=== PATIENT | female | born 1995 | race Caucasian/White ===

== ENCOUNTER → 2023-10-21 06:58 | Outpatient (REF) | payer BC, SELFPAY | LOC: PNTC 06:58 | PROVIDERS: ATTENDING PHYSICIAN Obstetrics & Gynecology | DX: O99.210 Obesity complicating pregnancy, unspecified trimester (principal); O34.219 Maternal care for unspecified type scar from previous cesarean delivery; O09.899 Supervision of other high risk pregnancies, unspecified trimester; O13.9 Gestational [pregnancy-induced] hypertension without significant proteinuria, unspecified trimester | CPT/HCPCS: 76811; 93976 ==

== ENCOUNTER → 2023-11-22 15:02 | Outpatient (REF) | payer BC, SELFPAY | LOC: PNTC 15:02 | PROVIDERS: ATTENDING PHYSICIAN Obstetrics & Gynecology | DX: O99.210 Obesity complicating pregnancy, unspecified trimester (principal); O34.219 Maternal care for unspecified type scar from previous cesarean delivery; O43.219 Placenta accreta, unspecified trimester | CPT/HCPCS: 76816; 93976 ==

== ENCOUNTER 2023-12-11 17:52 | Observation (INO) | payer BC, SELFPAY ==
[2023-12-11 18:06] VITALS: BP 131/67; BMI 45.8
== END 2023-12-11 18:00 | disposition home or self-care (01) ==
LOC: LDRP 17:52
PROVIDERS: ADMITTING PHYSICIAN Obstetrics & Gynecology
DX: T75.4XXA Electrocution, initial encounter (principal); W86.1XXA Exposure to industrial wiring, appliances and electrical machinery, initial encounter; Y93.H3 Activity, building and construction; Y92.009 Unspecified place in unspecified non-institutional (private) residence as the place of occurrence of the external cause; O99.283 Endocrine, nutritional and metabolic diseases complicating pregnancy, third trimester; E28.2 Polycystic ovarian syndrome; Z3A.28 28 weeks gestation of pregnancy; O99.343 Other mental disorders complicating pregnancy, third trimester; F41.9 Anxiety disorder, unspecified
CPT/HCPCS: 59025; G0378

== ENCOUNTER → 2023-12-20 07:00 | Outpatient (REF) | payer BC, SELFPAY | LOC: PNTC 07:00 | PROVIDERS: ATTENDING PHYSICIAN Obstetrics & Gynecology | DX: O99.210 Obesity complicating pregnancy, unspecified trimester (principal); O34.219 Maternal care for unspecified type scar from previous cesarean delivery | CPT/HCPCS: 76816 ==

== ENCOUNTER → 2024-01-17 07:02 | Outpatient (REF) | payer BC, SELFPAY | LOC: PNTC 07:02 | PROVIDERS: ATTENDING PHYSICIAN Obstetrics & Gynecology | DX: O99.210 Obesity complicating pregnancy, unspecified trimester (principal); O34.219 Maternal care for unspecified type scar from previous cesarean delivery | CPT/HCPCS: 76816 ==

== ENCOUNTER → 2024-01-24 07:57 | Outpatient (REF) | payer BC, SELFPAY | LOC: PNTC 07:57 | PROVIDERS: ATTENDING PHYSICIAN Obstetrics & Gynecology | DX: O99.210 Obesity complicating pregnancy, unspecified trimester (principal); D68.00 Von Willebrand disease, unspecified | CPT/HCPCS: 59025; 76818 ==

== ENCOUNTER → 2024-02-01 10:49 | Outpatient (REF) | payer BC, SELFPAY | LOC: PNTC 10:49 | PROVIDERS: ATTENDING PHYSICIAN Obstetrics & Gynecology | DX: O99.210 Obesity complicating pregnancy, unspecified trimester (principal); D68.00 Von Willebrand disease, unspecified | CPT/HCPCS: 59025; 76815 ==

== ENCOUNTER → 2024-02-07 07:55 | Outpatient (REF) | payer BC, SELFPAY | END | disposition home or self-care (01) | LOC: PNTC 07:55 | PROVIDERS: ATTENDING PHYSICIAN Obstetrics & Gynecology | DX: O99.210 Obesity complicating pregnancy, unspecified trimester (principal); D68.2 Hereditary deficiency of other clotting factors; O36.8190 Decreased fetal movements, unspecified trimester, not applicable or unspecified; O41.00X0 Oligohydramnios, unspecified trimester, not applicable or unspecified | CPT/HCPCS: 59025; 76816; 76818; 76820 ==

== ENCOUNTER → 2024-02-10 08:28 | Outpatient (REF) | payer BC, SELFPAY | LOC: PNTC 08:28 | PROVIDERS: ATTENDING PHYSICIAN Obstetrics & Gynecology | DX: O41.00X0 Oligohydramnios, unspecified trimester, not applicable or unspecified (principal); O36.8120 Decreased fetal movements, second trimester, not applicable or unspecified | CPT/HCPCS: 59025; 76818 ==

== ENCOUNTER 2024-02-14 05:30 | Inpatient (IN) | payer BC, SELFPAY ==
[2024-02-14 06:04] VITALS: BMI 44.4
[2024-02-14 06:16] VITALS: BP 126/70
[2024-02-14] MEDS: LR 1000 IV (06:35)
[2024-02-14] MEDS: TYLENOL 1000 MG PO (06:44)
[2024-02-14 06:48] LABS: Hematocrit 35.6 % (37.0-47.0); Hemoglobin 12.2 g/dL (12.0-16.0); Mean Corp Hgb Conc. 34.3 g/dL (33.0-37.0); Mean Corpuscular Hgb 27.9 pg (27.0-31.0); Mean Corpuscular Volume 81.5 fL (81.0-99.0); Mean Platelet Volume 10.3 fL (7.4-10.4); Platelet Count 237 10^3/uL (130-400); Red Blood Cell Count 4.37 10^6/uL (4.20-5.40); Red Cell Dist. Width 14.5 % (11.5-14.5); White Blood Cell Count 9.3 10^3/uL (4.8-10.8)
[2024-02-14] MEDS: BICITRA 30 ML PO (07:00)
[2024-02-14] MEDS: ANCEF 10 IV (07:07)
[2024-02-14 09:02] VITALS: BP 126/70; BP 146/89
[2024-02-14 09:15] VITALS: BP 131/73
[2024-02-14] MEDS: DILAUDID 0.5 MG IV ×2 (09:19→09:35)
[2024-02-14 09:30] VITALS: BP 136/75
[2024-02-14 09:45] VITALS: BP 134/74
[2024-02-14 09:55] VITALS: BP 133/68
[2024-02-14] MEDS: PITOCIN 30 UNITS/NSS 500 ML IV (11:51)
[2024-02-14] MEDS: TORADOL 15 MG IV ×2 (12:12→18:10)
[2024-02-14] MEDS: ELIQUIS 5 MG PO (20:07)
[2024-02-15] MEDS: TORADOL 15 MG IV ×2 (00:21→06:21)
[2024-02-15 06:36] LABS: Hematocrit 29.5 % (37.0-47.0); Hemoglobin 9.8 g/dL (12.0-16.0); Mean Corp Hgb Conc. 33.2 g/dL (33.0-37.0); Mean Corpuscular Hgb 27.7 pg (27.0-31.0); Mean Corpuscular Volume 83.3 fL (81.0-99.0); Mean Platelet Volume 10.8 fL (7.4-10.4); Platelet Count 234 10^3/uL (130-400); Red Blood Cell Count 3.54 10^6/uL (4.20-5.40); Red Cell Dist. Width 14.7 % (11.5-14.5); White Blood Cell Count 10.5 10^3/uL (4.8-10.8)
[2024-02-15] MEDS: ELIQUIS 5 MG PO ×2 (07:28→19:41)
[2024-02-15] MEDS: SENOKOT-S 1 TABLET PO (07:28)
--- NOTE | 2024-02-15 08:35 | W.PN.ANS.POP ---
Anesthesia Post Operative
- Anesthesia Post Op Note
Vital Signs Stable-See Nursing Note: Yes
Airway Patent: Yes
Adequate Pain Control: Yes
Change in Mental Status: No
Current Postoperative Nausea & Vomiting: No
Anesthesia Complications: No
General Anesthetic Recall: No
Unplanned Admission: No
Post Op Hydration Adequate: Yes
[2024-02-15] MEDS: TYLENOL 650 MG PO ×2 (11:58→18:06)
[2024-02-15] MEDS: MOTRIN 600 MG PO ×2 (11:58→18:06)
[2024-02-15 12:39] LABS: Syphilis/T. pallidum Ab Reflex Negative (Negative)
[2024-02-16] MEDS: MOTRIN 600 MG PO ×3 (00:02→12:01)
[2024-02-16] MEDS: TYLENOL 650 MG PO ×3 (00:04→12:01)
[2024-02-16] MEDS: ELIQUIS 5 MG PO (08:31)
[2024-02-16] MEDS: FEOSOL 325 MG PO (08:31)
[2024-02-16] MEDS: SENOKOT-S 1 TABLET PO (08:33)
--- NOTE | 2024-02-16 08:52 | W.DS.TRANS ---
DC Summary - Community Outreach Manager
-
Discharge Instructions:
Discharge Diagnosis/Procedures delivered 37 wks
Diet Regular
Driving Restrictions No driving for 2 weeks
Bathing Restrictions OK to Shower
Instructions:
Stand-Alone Forms: LDRP Delivery
Changes to Home Medications: Yes
Discharge Medications:
DC Medications w/original date entered in [facility]
prenat.vits,fish,odd-dyhm-bqtwx 1 tab PO DAILY Supplement 02/14/24
acetaminophen 325 mg tablet 650 mg (2 x 325 mg) PO Q4HPRN PRN mild pain #0 tabs 02/15/24
apixaban 5 mg tablet (Eliquis) 5 mg PO BID #0 tabs 02/15/24
ferrous sulfate 325 mg (65 mg iron) tablet (FeroSul) 325 mg PO DAILY #0 tabs 02/15/24
Home Medication Changes
Pending Results: No
Total time spent discharging patient (in min): 20
== END 2024-02-16 17:02 | disposition home or self-care (01) | DRG 787 ==
LOC: LDRP 05:30
PROVIDERS: ADMITTING PHYSICIAN Obstetrics & Gynecology
PROC: 10D00Z1 Extraction of Products of Conception, Low, Open Approach (ICD-10-PCS; 2024-02-14)
DX: O34.211 Maternal care for low transverse scar from previous cesarean delivery (principal); D68.51 Activated protein C resistance; O99.12 Other diseases of the blood and blood-forming organs and certain disorders involving the immune mechanism complicating childbirth; Z37.0 Single live birth; Z3A.37 37 weeks gestation of pregnancy; O69.81X0 Labor and delivery complicated by cord around neck, without compression, not applicable or unspecified; O99.214 Obesity complicating childbirth; E66.01 Morbid (severe) obesity due to excess calories; O36.8130 Decreased fetal movements, third trimester, not applicable or unspecified; O34.03 Maternal care for unspecified congenital malformation of uterus, third trimester; Q51.810 Arcuate uterus; O41.8X30 Other specified disorders of amniotic fluid and membranes, third trimester, not applicable or unspecified; O90.81 Anemia of the puerperium; D64.9 Anemia, unspecified; Z86.711 Personal history of pulmonary embolism; Z79.01 Long term (current) use of anticoagulants
CPT/HCPCS: 88307; 85027; 86780; 86850; 86900; 86901

== ENCOUNTER 2024-05-12 12:45 | Emergency (ER) | payer BC, SELFPAY ==
[2024-05-12 12:51] VITALS: BP 144/78
--- NOTE | 2024-05-12 13:43 | ED.GENMED ---
History of Present Illness
General
Chief Complaint: Rectal Bleeding
Source: patient
Exam Limitations: none
Time Seen by Provider: 05/12/24 13:26
History of Present Illness
History of Present Illness:
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 She had 3 months ago and stated with her first menstrual cycle since several days ago. She states she is currently on
her menstrual cycle. This was definite distinct rectal bleeding. She notes last 2 nights she had loose stools. She denies abdominal pain fever lightheadedness or shortness of breath. She denies any dark black or tarry stools.
Past History
Past History
ED Past Medical History: Hypercholesterolemia, Psychiatric (OCD) and Other (Pulmonary emboli)
ED Past Surgical History: (June 2021)
Social History
Tobacco: Non-smoker
Alcohol: None
Personal:
Living: with roommate
Family History
Family History: Other (Noncontributory)
Phy Exam
Physical Exam
Physical Exam:
General: Well-appearing female no acute respiratory distress HEENT: Normocephalic atraumatic
Heart: Regular rate and rhythm no murmurs
Lungs: Clear no wheeze
Abdomen is soft nontender nondistended no guarding or rebound
Rectal exam: Performed with female public policy professor in the room. There is a small 5 mm fissure noted over the anterior right asked. No hemorrhoids noted. Stool in the typical of is brown and heme-negative no active bleeding
Extremities: No cyanosis
Course
Orders/Labs/Results
Orders:
Orders
05/12/24 13:49
Complete Blood Count/With Diff Urgent
Comprehensive Metabolic Panel Urgent
Abnormal Lab Results
05/12/24
13:49
Hgb 11.9 L g/dL
(12.0-16.0)
Hct 36.5 L %
(37.0-47.0)
MCV 78.8 L fL
(81.0-99.0)
MCH 25.7 L pg
(27.0-31.0)
MCHC 32.6 L g/dL
(33.0-37.0)
RDW 15.4 H %
(11.5-14.5)
Absolute Lymphs (auto) 3.5 H 10^3/uL
(1.2-3.4)
05/12/24 13:49
05/12/24 13:49
Vital Signs
Initial and Last Documented VS:
Initial Vital Signs
Temp Pulse Resp BP Pulse Ox
98.0 F 68 18 144/78 98
05/12/24 12:51 05/12/24 12:51 05/12/24 12:51 05/12/24 12:51 05/12/24 12:51
Last Documented Vital Signs
Temp Pulse Resp BP Pulse Ox
98.0 F 66 16 137/77 98
05/12/24 12:51 05/12/24 14:24 05/12/24 14:24 05/12/24 14:24 05/12/24 14:24
MDM/Problems Addressed
Differential Diagnosis Includes:
Rectal bleeding. She noted to be bright red. No active bleeding on exam. Question possible small fissure noted. She is on Eliquis. Will check labs. If labs stable and no further bleeding, she would be able to be discharged
*Critical Care Note
Total Time (30-74mins, 75-104mins- exclusive of procedures): Not Applicable
Update Note
Update Note:
Patient reexamined. Labs reviewed hemoglobin significantly improved from discharge when she had her child. No active bleeding noted on exam. Stable for discharge
ED Attending Note
-
Portions of this chart may have been created with voice recognition software.� Occasional wrong word or��sound alike� substitutions may have occurred due to the inherent limitations of voice recognition software.
Discharge Plan
Departure
Patient Disposition: Home (Routine Discharge)
Date of Disposition: 05/12/24
Time of Disposition: 15:17
Patient with high blood pressure during this ER visit?: No
Discharge Problem:
Rectal bleed
Instructions: Anal Fissure (DC)
Prescriptions:
No Action
Eliquis 2.5 mg tablet
2.5 mg PO BID
Referrals:
Sriram Lino CRNP [Family Provider] -
Activity Restrictions/Additional Instructions:
Watch for worsening bleeding. Return if worse otherwise.
Interventions
Interventions:
*Risk Screen - Suicide Last Done: 05/12/24 13:14
*General Assessment Last Done: 05/12/24 13:14
*Neglect/Abuse Screening Last Done: 05/12/24 13:14
ED- Fall Risk Assessment Last Done: 05/12/24 13:14
*ED COVID-19 Vaccine History Last Done: 05/12/24 13:14
RU-[place]-Rbwucrckek Assessment Last Done: 05/12/24 13:14
ED- Cardiac Assessment Last Done: 05/12/24 13:14
ED- Pulmonary Assessment Last Done: 05/12/24 13:14
Discharge Date and Time
Print Language: KITTITIAN
[2024-05-12 14:01] LABS: % Basophils 0.5 % (0-2); % Eosinophils 1.4 % (0-6); % Immature Granulocytes 0.4 % (0-0.5); % Lymphocytes 41.8 % (20.5-51.1); % Monocytes 5.5 % (1.7-9.3); % Neutrophils 50.4 % (42.2-75.2); Absolute Eosinophils 0.1 10^3/uL (0-0.7); Absolute Lymphocytes 3.5 10^3/uL (1.2-3.4); Absolute Monocytes 0.5 10^3/uL (0.1-0.6); Absolute Neutrophils 4.2 10^3/uL (1.4-6.5); Hematocrit 36.5 % (37.0-47.0); Hemoglobin 11.9 g/dL (12.0-16.0); Mean Corp Hgb Conc. 32.6 g/dL (33.0-37.0); Mean Corpuscular Hgb 25.7 pg (27.0-31.0); Mean Corpuscular Volume 78.8 fL (81.0-99.0); Mean Platelet Volume 9.6 fL (7.4-10.4); Nucleated Red Blood Cells % 0 %; Platelet Count 334 10^3/uL (130-400); Red Blood Cell Count 4.63 10^6/uL (4.20-5.40); Red Cell Dist. Width 15.4 % (11.5-14.5); White Blood Cell Count 8.3 10^3/uL (4.8-10.8)
[2024-05-12 14:24] VITALS: BP 137/77; BMI 41.5
[2024-05-12 14:27] LABS: ALT (SGPT) 15 U/L (0-35); AST (SGOT) 23 U/L (14-36); Albumin 4.2 g/dl (3.5-5.0); Alkaline Phosphatase 83 U/L (38-126); Blood Urea Nitrogen 13 mg/dl (7-17); Calcium 9.2 mg/dl (8.4-10.2); Carbon Dioxide 23 mmol/L (22-30); Chloride 104 mmol/L (98-107); Glucose 93 mg/dl (70-99); Potassium 4.2 mmol/L (3.5-5.1); Sodium 139 mmol/L (135-145); Total Bilirubin 0.5 mg/dl (0.2-1.3); Total Protein 6.9 g/dl (6.3-8.2); eGFR > 60.00
[2024-05-12 15:31] VITALS: BP 135/72
== END 2024-05-12 15:31 | disposition home or self-care (01) ==
LOC: EMR 12:45
PROVIDERS: Physician Assistant; EMERGENCY PHYSICIAN Emergency Medicine; FAMILY PHYSICIAN Nurse Practitioner Family
DX: K62.5 Hemorrhage of anus and rectum (principal); R19.7 Diarrhea, unspecified; K60.2 Anal fissure, unspecified; D68.51 Activated protein C resistance; F42.9 Obsessive-compulsive disorder, unspecified; E78.00 Pure hypercholesterolemia, unspecified; Z79.01 Long term (current) use of anticoagulants; Z86.711 Personal history of pulmonary embolism
CPT/HCPCS: 99283; 80053; 85025

== ENCOUNTER 2025-02-02 06:27 | Day surgery (SDC) | payer BC, SELFPAY | END 2025-02-02 11:34 | disposition home or self-care (01) | LOC: GI 06:27 | PROVIDERS: ATTENDING PHYSICIAN Internal Medicine | DX: K62.5 Hemorrhage of anus and rectum (principal); Z79.01 Long term (current) use of anticoagulants | CPT/HCPCS: 45378 ==

== ENCOUNTER → 2025-03-15 15:40 | Outpatient (REF) | payer BC, SELFPAY | LOC: PNTC 15:40 | PROVIDERS: ATTENDING PHYSICIAN Obstetrics & Gynecology | DX: O36.80X0 Pregnancy with inconclusive fetal viability, not applicable or unspecified (principal) | CPT/HCPCS: 76801; 76817 ==

== ENCOUNTER → 2025-03-29 16:52 | Outpatient (REF) | payer BC, SELFPAY | LOC: PNTC 16:52 | PROVIDERS: ATTENDING PHYSICIAN Nurse Practitioner Family; REFERRING PHYSICIAN Obstetrics & Gynecology | DX: O36.70X0 Maternal care for viable fetus in abdominal pregnancy, unspecified trimester, not applicable or unspecified (principal); O09.891 Supervision of other high risk pregnancies, first trimester; N96 Recurrent pregnancy loss; O26.21 Pregnancy care for patient with recurrent pregnancy loss, first trimester; D68.59 Other primary thrombophilia; O99.211 Obesity complicating pregnancy, first trimester | CPT/HCPCS: 76815 ==

== ENCOUNTER → 2025-04-16 16:26 | Outpatient (REF) | payer BC, SELFPAY | LOC: PNTC 16:26 | PROVIDERS: ATTENDING PHYSICIAN Obstetrics & Gynecology | DX: D68.59 Other primary thrombophilia (principal); N96 Recurrent pregnancy loss; O26.21 Pregnancy care for patient with recurrent pregnancy loss, first trimester; O99.211 Obesity complicating pregnancy, first trimester | CPT/HCPCS: 76815 ==

== ENCOUNTER → 2025-04-24 11:29 | Outpatient (REF) | payer BC, SELFPAY | LOC: RAD 11:29 | PROVIDERS: ATTENDING PHYSICIAN Student in an Organized Health Care Education/Training Program; FAMILY PHYSICIAN Nurse Practitioner Family | DX: O26.21 Pregnancy care for patient with recurrent pregnancy loss, first trimester (principal) | CPT/HCPCS: 76801 ==

== ENCOUNTER → 2025-05-03 16:56 | Outpatient (REF) | payer BC, SELFPAY | LOC: PNTC 16:56 | PROVIDERS: ATTENDING PHYSICIAN Obstetrics & Gynecology | DX: O34.219 Maternal care for unspecified type scar from previous cesarean delivery (principal); D68.51 Activated protein C resistance; O99.211 Obesity complicating pregnancy, first trimester; O26.21 Pregnancy care for patient with recurrent pregnancy loss, first trimester | CPT/HCPCS: 76801; 76813 ==

== ENCOUNTER → 2025-05-29 08:33 | Outpatient (REF) | payer BC, SELFPAY | LOC: PNTC 08:33 | PROVIDERS: ATTENDING PHYSICIAN Obstetrics & Gynecology | DX: O99.212 Obesity complicating pregnancy, second trimester (principal); O34.219 Maternal care for unspecified type scar from previous cesarean delivery; D68.51 Activated protein C resistance; N96 Recurrent pregnancy loss; O26.22 Pregnancy care for patient with recurrent pregnancy loss, second trimester | CPT/HCPCS: 76805 ==

== ENCOUNTER → 2025-06-25 08:56 | Outpatient (REF) | payer BC, SELFPAY | LOC: PNTC 08:56 | PROVIDERS: ATTENDING PHYSICIAN Obstetrics & Gynecology | DX: O99.212 Obesity complicating pregnancy, second trimester (principal); O34.219 Maternal care for unspecified type scar from previous cesarean delivery; D68.2 Hereditary deficiency of other clotting factors | CPT/HCPCS: 76811; 76817 ==

== ENCOUNTER → 2025-07-24 08:29 | Outpatient (REF) | payer BC, SELFPAY | LOC: PNTC 08:29 | PROVIDERS: ATTENDING PHYSICIAN Obstetrics & Gynecology | DX: O99.212 Obesity complicating pregnancy, second trimester (principal); O34.219 Maternal care for unspecified type scar from previous cesarean delivery; D68.2 Hereditary deficiency of other clotting factors; N96 Recurrent pregnancy loss; O09.93 Supervision of high risk pregnancy, unspecified, third trimester | CPT/HCPCS: 76816 ==

== ENCOUNTER → 2025-08-21 12:00 | Outpatient (REF) | payer BC, SELFPAY | LOC: PNTC 12:00 | PROVIDERS: ATTENDING PHYSICIAN Obstetrics & Gynecology | DX: O99.213 Obesity complicating pregnancy, third trimester (principal); O34.219 Maternal care for unspecified type scar from previous cesarean delivery; D68.2 Hereditary deficiency of other clotting factors; N96 Recurrent pregnancy loss; O09.93 Supervision of high risk pregnancy, unspecified, third trimester | CPT/HCPCS: 76816 ==